=== PATIENT | male | born 1990 | race Caucasian/White ===

== ENCOUNTER 2024-09-13 13:16 | Outpatient (CLI) | payer OTHER | END 2024-09-13 13:17 | disposition home or self-care (01) | LOC: CSHWCC 13:16 | PROVIDERS: ATTEND Nurse Practitioner Family | DX: L73.2 Hidradenitis suppurativa (principal) | CPT/HCPCS: 99215; G0463 ==

== ENCOUNTER 2024-09-20 12:35 | Outpatient (CLI) | payer OTHER | END 2024-09-20 12:36 | disposition home or self-care (01) | LOC: CSHWCC 12:35 | PROVIDERS: ATTEND Nurse Practitioner Family | DX: E11.622 Type 2 diabetes mellitus with other skin ulcer (principal); L98.499 Non-pressure chronic ulcer of skin of other sites with unspecified severity; E11.65 Type 2 diabetes mellitus with hyperglycemia; L73.2 Hidradenitis suppurativa ==

== ENCOUNTER 2024-10-18 14:04 | Outpatient (CLI) | payer OTHER | END 2024-10-18 14:05 | disposition home or self-care (01) | LOC: CSHWCC 14:04 | PROVIDERS: ATTEND Nurse Practitioner Family | DX: E11.622 Type 2 diabetes mellitus with other skin ulcer (principal); E11.65 Type 2 diabetes mellitus with hyperglycemia; L73.2 Hidradenitis suppurativa | CPT/HCPCS: 99213; G0463 ==